=== PATIENT | male | born 1955 | race Caucasian/White ===

== ENCOUNTER → 2020-01-02 | Outpatient (CLI) | payer OTHER ==
[~2020-01-02] MED LIST: AUGMENTIN 875875 M1 PO; FISH OIL 1,001000 M1 PO; NORVASC 5 MG TAB5 MG PO
[2020-01-02 14:55] LABS: ABSOLUTE BASOPHILS 0.1 thou/uL (0.0-0.2); ABSOLUTE EOSINOPHILS 0.2 thou/uL (0.0-0.7); ABSOLUTE LYMPHOCYTES 1.4 thou/uL (0.8-5.3); ABSOLUTE MONOCYTES 0.7 thou/uL (0.0-1.2); ABSOLUTE NEUTROPHILS 4.1 thou/uL (1.6-8.1); BASOPHILS 1.4 %; EOSINOPHILS 2.4 %; HEMATOCRIT 43.8 % (42.0-52.0); HEMOGLOBIN 14.9 gm/dL (14.0-18.0); LYMPHOCYTES 21.2 %; MCH 31.5 pg (26.0-34.0); MCV 92.4 fL (80.0-100.0); MONOCYTES 11.6 %; MPV 8.1 fl. (7.2-11.1); NUCLEATED RBCS 0 /100WBC; PLATELET COUNT* 293 thou/uL (150-400); POLYS 63.4 %; RBC 4.74 mil/uL (4.50-6.00); WBC 6.4 thou/uL (4.0-11.0)
[2020-01-02 15:00] LABS: CALCIUM 9.1 mg/dL (8.5-10.1); CREATININE 1.3 mg/dL (0.6-1.3)
[2020-01-02 15:58] LABS: ESR (SEDRATE) 17 mm/hr (0-20)
== END ==
LOC: M.LAB 14:00 → M.MRI 14:30 → M.LAB 14:33 → M.MRI 01-03 14:30
PROVIDERS: ATTEND Nurse Practitioner Family
DX: L03.012 Cellulitis of left finger (principal); I10 Essential (primary) hypertension; M25.441 Effusion, right hand; M00.9 Pyogenic arthritis, unspecified; M79.89 Other specified soft tissue disorders; Z90.49 Acquired absence of other specified parts of digestive tract